=== PATIENT | female | born 1955 ===

== ENCOUNTER 2020-09-26 17:46 | Emergency (ER) | payer BC ==
[~2020-09-26] VITALS: Ht 167.6 cm; Wt 65.8 kg
--- NOTE | 2020-09-26 17:49 | NUR ---
Pt brought in by rescue, brought for weakness found in hotel unable to get up
--- NOTE | 2020-09-26 17:50 | NUR ---
MD Tate at bedside assessing Pt.
--- NOTE | 2020-09-26 19:45 | NUR ---
Patient in bed asleep but arousable to sternal rub, respirations even and unlabored, NSR on tele, sating 97% on Room air, will collect labs.
[2020-09-26 21:08] LABS: *AMPHETAMINE, URINE NEGATIVE (NEGATIVE); *CANNABINOID, URINE NEGATIVE (NEGATIVE); *COCCAINE, URINE POSITIVE (NEGATIVE); *OPIATE, URINE NEGATIVE (NEGATIVE); *PHENCYCLIDINE SCREEN,URINE NEGATIVE (NEGATIVE)
[2020-09-26 21:12] LABS: BASOPHILS % (AUTO) 0.3 % (0.0-2.0); EOSINOPHILS % (AUTO) 0.1 % (0.0-7.0); HEMATOCRIT 49.5 % (31.2-41.9); HEMOGLOBIN 16.5 g/dL (10.9-14.3); LYMPHOCYTES # (AUTO) 2.4 K/uL (20.0-40.0); LYMPHOCYTES % (AUTO) 33.7 % (20.5-51.5); MEAN CORPUSCULAR HEMOGLOBIN 28.7 uug (24.7-32.8); MEAN CORPUSCULAR HGB CONC 33 g/dL (32.3-35.6); MEAN CORPUSCULAR VOLUME 86.4 fL (75.5-95.3); MONOCYTES # (AUTO) 0.6 K/uL (2.0-10.0); MONOCYTES % (AUTO) 8.5 % (0.0-11.0); NEUTROPHILS # (AUTO) 4.1 K/uL (1.8-8.9); NEUTROPHILS % (AUTO) 57.4 % (38.5-71.5); PLATELET COUNT (AUTO) 180 K/uL (179-408); RED BLOOD CELL COUNT(AUTO) 5.73 MIL/uL (3.63-4.92); WHITE BLOOD COUNT (AUTO) 7.2 K/uL (3.8-11.8)
[2020-09-26 21:24] LABS: CARBON DIOXIDE 23 mmol/L (21-32); CHLORIDE 97 mmol/L (98-107); CREATININE 1.8 mg/dL (0.6-1.3); ETHANOL < 3 MG/DL (0-0); GLUCOSE 106 mg/dL (74-106); POTASSIUM 6.1 mmol/L (3.5-5.1); UREA NITROGEN, BLOOD 30 mg/dL (7-18)
[2020-09-26 21:39] LABS: ALANINE AMINOTRANSFERASE 247 U/L (14-59); ALKALINE PHOSPHATASE 91 U/L (50-136); ASPARTATE AMINOTRANSFERASE 666 U/L (15-37); BILIRUBIN,DIRECT 0.2 mg/dL (0.0-0.2); BILIRUBIN,TOTAL 0.5 mg/dL (0.2-1.0); TOTAL PROTEIN, SERUM 8.2 g/dL (6.4-8.2)
[2020-09-26 21:41] LABS: ACETAMINOPHEN < 2.0 ug/mL (10-30)
[2020-09-26] MEDS ORDERED: DEXTROSE 50% 50 ML DISP.SYRIN IV ONE (22:15)
[2020-09-26] MEDS ORDERED: SODIUM POLYSTYRENE SULFONATE ENEMA 30 G/120 ML BOTTLE RC ONE ×2 (22:15→22:38)
[2020-09-26] MEDS ORDERED: INSULIN REGULAR, HUMAN 300 UNIT/3 ML VIAL IV ONE (22:15)
--- NOTE | 2020-09-26 22:30 | NUR ---
Patient will be admitted to [facility], clinicals faxed.
[2020-09-26 22:34] LABS: CREATINE KINASE, TOTAL > 14000 U/L (26-192)
[2020-09-26] MEDS ORDERED: SODIUM BICARBONATE 8.4% 50 MEQ/50 ML DISP.SYRIN IV ONE (22:38)
[2020-09-26] MEDS ORDERED: DEXTROSE 50% 50 ML DISP.SYRIN ONE (22:38)
[2020-09-26] MEDS ORDERED: INSULIN REGULAR, HUMAN 300 UNIT/3 ML VIAL ONE (22:39)
[2020-09-26] MEDS: SODIUM BICARBONATE 4.2 % (NEUT) 5 ML VIAL IV ONE ×2 (22:40→23:03)
[2020-09-26] MEDS ORDERED: SODIUM BICARBONATE 8.4% 50 MEQ/50 ML VIAL IV ONE (23:00)
[2020-09-26] MEDS ORDERED: IV NS 1000 ML 1,000 ML IV ONE (23:00)
[2020-09-26] MEDS ORDERED: SODIUM POLYSTYRENE SULFONATE 15 G/60 ML LIQUID UDC PO ONE (23:00)
[2020-09-26] MEDS ORDERED: SODIUM POLYSTYRENE SULFONATE 15 G/60 ML LIQUID UDC ONE ×2 (23:09→23:12)
--- NOTE | 2020-09-26 23:17 | NUR ---
covid swab collected.
--- NOTE | 2020-09-27 01:01 | NUR ---
Patient more awake and alert now, snack proivded per Dr. Lopez.
--- NOTE | 2020-09-27 01:58 | NUR ---
transport called, eta 45 min.
--- NOTE | 2020-09-27 01:58 | NUR ---
called Ezra velazquez for report, will wait for call back from nurse Vásquez.
--- NOTE | 2020-09-27 02:26 | NUR ---
Report given to EMMY Vásquez at [facility]
--- NOTE | 2020-09-27 03:51 | NUR ---
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 patient is alert and oriented, no acute distress noted.
== END 2020-09-27 03:54 | disposition short-term general hospital (02) ==
LOC: ER 17:49
DX: T40.5X1A Poisoning by cocaine, accidental (unintentional), initial encounter (principal); M62.82 Rhabdomyolysis; N17.9 Acute kidney failure, unspecified; F14.10 Cocaine abuse, uncomplicated; Y92.59 Other trade areas as the place of occurrence of the external cause; E87.5 Hyperkalemia; Z20.822 Contact with and (suspected) exposure to COVID-19; R74.01 Elevation of levels of liver transaminase levels; R94.31 Abnormal electrocardiogram [ECG] [EKG]; Z91.5 Personal history of self-harm
CPT/HCPCS: 36415; 71045; 73502; 80048; 80076; 80299; 80307; 80320; 82550; 82962 ×3; 85025; 87426; 93005; 96361; 96374; 96375; 99285; J1815; J3490 ×3; A4663; C1758; G0480; J7030